=== PATIENT | male | born 1990 | race Caucasian/White ===

== ENCOUNTER 2022-08-26 20:50 | Emergency (ER) | payer BC ==
[2022-08-26] MEDS ORDERED: Acetaminophen/oxyCODONE 325-5 MG Tab PO ONE (21:03)
[2022-08-26] MEDS ORDERED: Ondansetron 4 MG Tab.DIS PO ONE (21:03)
[2022-08-27 01:57] VITALS: BP 125/84; PULSE 87
== END 2022-08-26 22:10 | disposition home or self-care (01) ==
LOC: MW.ED 20:50
DX: S82.391A Other fracture of lower end of right tibia, initial encounter for closed fracture (principal); W22.8XXA Striking against or struck by other objects, initial encounter; Y93.64 Activity, baseball
CPT/HCPCS: 29515; 73590; 73610; 99284; A9270; 99283

== ENCOUNTER 2022-08-28 10:28 | Day surgery (SDC) | payer BC ==
[~2022-08-28 10:28] MED LIST: Albuterol 0.083% 2.5 MG/3 ML Neb Soln NEB PRN; HYDROmorphone 1 MG/ML Syringe IVPUSH PRN; Lactated Ringers 1,000 ML IV SCH; Metoclopramide 10 MG/2 ML SDV IVPUSH PRN; Morphine 2 MG/ML SYRINGE IVPUSH PRN; Naloxone 0.4 MG/ML SDV IVPUSH PRN; Ondansetron 4 MG/2 ML SDV IVPUSH PRN; droPERidol 5 MG/2 ML SDV IVPUSH PRN; fentaNYL 50 MCG/ML SDV IVPUSH PRN
[2022-08-28] MEDS ORDERED: fentaNYL 100 MCG/2 ML SDV ONE (11:37)
[2022-08-28] MEDS ORDERED: Dexmedetomidine 200 MCG/2 ML SDV ONE (11:37)
[2022-08-28] MEDS ORDERED: Lidocaine 1% 5 ML VIAL ONE (11:37)
[2022-08-28] MEDS ORDERED: Propofol 200 MG/20 ML SDV ONE (11:37)
[2022-08-28] MEDS ORDERED: Ondansetron 4 MG/2 ML SDV ONE (11:39)
[2022-08-28] MEDS ORDERED: Scopolamine 1.5 MG Transdermal Patch ONE (11:41)
[2022-08-28] MEDS ORDERED: Ropivacaine 0.5% 5 MG/ML 30 ML SDV ONE (11:52)
[2022-08-28] MEDS ORDERED: ceFAZolin 2 GM in Sodium Chloride 0.9% 50 ML IV ONE (12:00)
[2022-08-28] MEDS ORDERED: ceFAZolin 2 GM Vial ONE (12:22)
[2022-08-28] MEDS ORDERED: Dexamethasone 4 MG/ML 5 ML MDV ONE (12:22)
[2022-08-28] MEDS ORDERED: Magnesium Sulfate (4.06 MEQ/ML) 5 GM/10 ML SDV ONE (12:26)
[2022-08-28] MEDS ORDERED: propofoL 100 ML ONE (12:43)
[2022-08-28] MEDS ORDERED: Ketorolac 30 MG/ML SDV ONE (13:35)
[2022-08-28 15:58] VITALS: BP 103/63; PULSE 69
== END 2022-08-28 16:15 | disposition home or self-care (01) ==
LOC: MW.SDS 10:28
PROVIDERS: ATTEND Orthopaedic Surgery
DX: S82.201A Unspecified fracture of shaft of right tibia, initial encounter for closed fracture (principal); F41.0 Panic disorder [episodic paroxysmal anxiety]; E66.9 Obesity, unspecified; Z68.32 Body mass index [BMI] 32.0-32.9, adult; Z79.899 Other long term (current) drug therapy; X58.XXXA Exposure to other specified factors, initial encounter; Y93.64 Activity, baseball
CPT/HCPCS: 27759; 64447; J0131; J0690; J1100; J1170; J1885; J2405; J2704; J2795; J3010; J3475; J7120; J3490